=== PATIENT | male | born 1970 | race Caucasian/White ===

== ENCOUNTER 2022-12-09 13:56 | Emergency (ER) | payer OTHER, BC, SELFPAY ==
[2022-12-09 14:00] VITALS: BP 178/98; PULSE 93; RESP 22; TEMP 36.8; O2SAT 96
--- NOTE | 2022-12-09 15:18 | ECG_ITS ---
Measurements Intervals [place] Rate: 68 P: 36 DC: 144 QRS: 45 QRSD: 97 T: 63 QT: 387 QTc: 414 Interpretive Statements SINUS RHYTHM NORMAL ECG NO PREVIOUS ECG AVAILABLE FOR COMPARISON Electronically Signed On 12-10-2022 14:32:24 CDT by Steve Pradhan M.D.
[2022-12-09 15:38] LABS: Basophils Percent Auto 0.1 % (0.2-1.2); Eosinophils Percent Auto 0.4 % (0-4.4); Hemoglobin 16.3 g/dL (14.0-18.0); Immature Granulocyte Absolute 0.08 K/mm3 (0.00-0.031); Immature Granulocyte Percent A 0.8 % (0-0.5); Lymphocytes Absolute Auto 1.89 K/mm3 (0.9-3.2); Lymphocytes Percent Auto 18.7 % (18.3-44.2); Mean Corpuscular HGB Conc 36.2 g/dl (32-36); Mean Corpuscular Hemoglobin 35.3 pg (26-34); Mean Corpuscular Volume 97.4 fl (80-100); Mean Platelet Volume 8.9 fl (7.4-10.4); Monocytes Absolute Auto 0.5 K/mm3 (0.1-0.6); Monocytes Percent Auto 5.3 % (2.6-8.5); Neutrophils Absolute Auto 7.6 K/mm3 (1.3-6.7); Neutrophils Percent Auto 74.7 % (45.5-73.1); Platelet Count Result 169 k/mm3 (150-375); Red Blood Count 4.62 M/mm3 (4.6-6.20); Red Cell Distribution Width 11.9 % (11.5-14.5); White Blood Count 10.1 K/mm3 (4.5-10.0)
[2022-12-09 15:54] LABS: Alanine Aminotransferase 28 U/L (6-50); Albumin Level 4.5 g/dL (3.5-5.1); Alkaline Phosphatase 67 U/L (38-126); Anion Gap 7 mmol/L (8-16); Aspartate Amino Transferase 25 U/L (17-59); Bilirubin,Total 0.9 mg/dL (0.2-1.3); Blood Urea Nitrogen 17 mg/dL (9-20); Calcium 9.1 mg/dL (8.4-10.2); Carbon Dioxide 26 mmol/L (22-30); Chloride 101 mmol/L (98-107); Estimated CRCL calculation 110 ml/min; Estimated Glomerular Filt Rate > 60; Glucose 139 mg/dL (65-110); Magnesium 1.9 mg/dL (1.6-2.3); Potassium 3.9 mmol/L (3.4-5.0); Sodium 134 mmol/L (137-145)
--- NOTE | 2022-12-09 16:02 | ED.GENADULT ---
HPI - General Adult General Chief complaint: Unspecified Stated complaint: tremors Time Seen by Provider: 12/09/22 14:33 History of Present Illness HPI narrative: This is a 52-year-old male, with history of bipolar disorder and anxiety, who presents emergency department complaining of bilateral hand and face twitching beginning approximately noon today. The patient states he has undergone multiple changes with his medications, most recently an increased dose of olanzapine and starting ashwaganda and recommendation by his psychiatrist. He states he has had similar symptoms the past several weeks, but was significantly worse today. Related Data Allergies Allergy/AdvReac Type Severity Reaction Status Date / Time No Known Allergies Allergy Verified 12/09/22 13:57 Review of Systems Review of Systems: CONSTITUTIONAL: Denies fever, chills, or sweats. CARDIOVASCULAR: Palpitations denies chest pain, or edema. RESPIRATORY: Denies cough or dyspnea. GASTROINTESTINAL: Denies abdominal pain, nausea, vomiting, or diarrhea. GENITOURINARY: Denies dysuria or hematuria. SKIN: Denies rash or itching. MUSCULOSKELETAL: Denies back pain, joint pain, or myalgia. NEUROLOGIC: Twitching of hands and face, headache denies numbness, dizziness, or weakness PSYCHIATRIC: Denies anxiety or depression. PMFSH Past Medical History Medical History Anxiety Bipolar disorder HIV (human immunodeficiency virus infection) Surgical History Surgical History No significant past surgical history Social History Social History (Updated 12/09/22 @ 16:07 by Karl Nuñez MD) Smoking status: Never smoker Alcohol intake: never Substance use: never Exam Narrative: GENERAL: Well-developed, well-nourished, and in no acute distress. Appears anxious HEAD: Normocephalic, atraumatic. EYES: PERRLA and EOMI. ENT: Nares clear, no rhinorrhea or epistaxis. Mucous membranes moist. Oropharynx without tonsillar hypertrophy exudate or other lesions. CHEST: Clear to auscultation. No respiratory distress. No wheezes rales or rhonchi HEART: Regular rate and rhythm. No murmur heard. Normal peripheral pulses. ABDOMEN: Soft, nontender, nondistended, normal active bowel sounds. EXTREMITIES: Normal range of motion. No edema. SKIN: Warm, dry, no rash. NEURO: Alert and oriented x3. Moving all 4 limbs purposefully. Strength 5/5 in all extremities, sensation intact bilaterally, fine tremor noted PSYCH: Normal mood and affect. Course Course Emergency Course: 16:30 - CBC demonstrates slightly elevated white blood cell count of 10.1 but is otherwise unremarkable. Chemistries demonstrate mild hyponatremia with sodium of 134 and hyperglycemia with glucose of 139 but is otherwise unremarkable. EKG not concerning for arrhythmia. On evaluation after IV diphenhydramine, the patient states his tremors have slightly improved, though they are still present. Will trial a dose of Cogentin and reassess. 17:26 - The patient notes continued improvement of his symptoms. Will discharge with Cogentin and recommendation to follow-up with his psychiatrist to consider reduction of or change from olanzapine. Discussed return emerged precautions including signs/symptoms of serotonin syndrome. The patient voiced understanding and is comfortable with the plan. All questions answered to his satisfaction. Vital Signs Vital signs: Vital Signs Temperature 98.2 F 12/09/22 14:00 Pulse Rate 93 12/09/22 14:00 Respiratory Rate 22 H 12/09/22 14:00 Blood Pressure 178/98 H 12/09/22 14:00 Pulse Oximetry 96 12/09/22 14:00 Oxygen Delivery Room Air 12/09/22 14:00 Temperature 98.2 F 12/09/22 14:00 Pulse Rate 75 12/09/22 18:48 Respiratory Rate 16 12/09/22 18:48 Blood Pressure 135/96 H 12/09/22 18:48 Pulse Oximetry 97 12/09/22 18:48 Oxygen Delivery Ro
[2022-12-09] MEDS: diphenhydrAMINE HCl INJ 50 MG/ML VIAL IV PUSH (16:05)
[2022-12-09] MEDS: BENZTROPINE MESYLATE INJ 1 MG/ML AMPUL IM (16:59)
[2022-12-09 18:48] VITALS: BP 135/96; PULSE 75; RESP 16; O2SAT 97
== END 2022-12-09 18:49 | disposition home or self-care (01) ==
PROVIDERS: Emergency Provider Preventive Medicine Aerospace Medicine; PCP Family Medicine
DX: G25.71 Drug induced akathisia (principal); T50.915A Adverse effect of multiple unspecified drugs, medicaments and biological substances, initial encounter
CPT/HCPCS: 36415; 80053; 83735; 85025; 93005; 96372; 96374; 99284; J0515; J1200